=== PATIENT | male | born 1930 | race Two or more races ===

== ENCOUNTER 2022-01-28 04:26 | Inpatient (IN) | payer OTHER ==
--- OUTSIDE RECORDS SUMMARY | 2022-01-28 04:30 | XMS REPORT | Continuity of Care Document ---
:1930 Author Organization [facility] t Address [address] [place] [address] Care Team Providers Name Role Phone DANK BERNALJOSSY Attending Clinician Unavailable ADDI RAMOS Attending Clinician [phone] NURSE, NURSE Attending Clinician Unavailable PHUONG GREEN Attending Clinician [phone] TRELL RODRÍGUEZ Attending Clinician Unavailable [facility], PROVIDER Attending Clinician Unavailable JEANNA OWUSU Attending Clinician [phone] Problems This patient has no known problems. Allergies, Adverse Reactions, Alerts This patient has no known allergies or adverse reactions. Social History Social Habit Start Date Stop Date Quantity Comments Source Health-related Behavior 2019-06-06 00:00:[address] [facility] intake [facility] Sex Assigned At Male Acc [facility] Smoking Status Start Date Stop Date Source [facility] Medications Ordered Filled Start Stop Current Ordering Indication Dosage Frequency Signature Comments Components Source Medication Medication Date Date Medication? Clinician (SIG) Name Name Plavix 75 2018-06 No take 1 [facility] mg tablet 2-30 tablet (75 9 ealt h 00:00: mg) by Medicatio 00 oral route n once daily refilled during OV.--AG,R N Toprol XL 2018-06 No take 1 [facility] 50 mg 2-30 tablet (50 9 ealth tablet,exte 00:00: mg) by Medicatio nded 00 oral route n release once daily refilled during OV.--AG,R N aspirin 81 2019-1 No take 1 [facility] mg 2-30 tablet (81 9 ealth tablet,mekhi 00:00: mg) by Medicatio yed release 00 oral route n once daily refilled during OV.--AG,R N Crestor 20 2018-06 No take 1 [facility] mg tablet 2-30 tablet (20 9 ealt h 00:00: mg) by Medicatio 00 oral route n once daily refilled during OV.--AG,R N donepezil 5 2018-06 No take 1 [facility] mg tablet 2-30 tablet (5 9 ealth 00:00: mg) by Medicatio 00 oral route n once daily refilled in the during evening OV.--AG,R N levothyroxi 2018-06 No take 1 [facility] ne 50 mcg 2-30 tablet by 9 ealth tablet 00:00: Oral route Medicatio 00 1 time per n day refilled during OV.--AG,R N pyridostigm 2018-06 No take 1 [facility] ine bromide 2-30 tablet (60 9 ea lth 60 mg 00:00: mg) by Medicatio tablet 00 oral route n 4 times refilled per day during OV.--AGR N pyridostigm 2018-06- No take 1 [facility] ine bromide 2-16 -30 tablet (60 e alth 60 mg 00:00: 00:00 mg) by tablet 00 :00 oral route 4 times per day levothyroxi 2018- No take 1 [facility] ne 50 mcg 6-30 tablet by ealt h tablet 00:00: 00:00 Oral route 00 :00 1 time per day Plavix 75 2018- No take 1 [facility] mg tablet 09-14 tablet (75 eal th 00:00: 00:00 mg) by 00 :00 oral route once daily Toprol XL 2018- No take 1 [facility] 50 mg 09-14 tablet (50 ealth tablet,exte 00:00: 00:00 mg) by nded 00 :00 oral route release once daily aspirin 81 2018- No take 1 [facility] mg 09-14 tablet (81 ealth tablet,mekhi 00:00: 00:00 mg) by yed release 00 :00 oral route once daily Crestor 20 2018- No take 1 [facility] mg tablet 09-14 tablet (20 eal th 00:00: 00:00 mg) by 00 :00 oral route once daily donepezil 5 2018- No take 1 [facility] mg tablet 09-14 tablet (5 ealt h 00:00: 00:00 mg) by 00 :00 oral route once daily in the evening pyridostigm take 1 [facility] ine bromide 09-14 tablet (60 e alth 60 mg 00:00: 00:00 mg) by tablet 00 :00 oral route 4 times per day Immunizations Ordered Filled Date Status Comments Source Immunization Name Immunization Name Influenza 2017-07-09 Completed Note: FLU VACC 4 [facility] 4 SAMIR 3 YRS PLUS IM 00:00:00 By VIKAS ; Source: New Immunization Record Influenza 2016-04-09 Completed Note: FLU VACC 4 [facility] 8 SAMIR 3 YRS PLUS IM 00:00:00 By PRESLEY ; Source: New Immunization Record Vital Signs Vital Name Observation Time Observation Value Comments Source Body height 2019-06-06 15:28:00 162.56 cm [facility] Patient Body Weight 2019-06-06 15:28:00 69.853 kg [facility] Systolic 2019-06-06 15:28:00 146 mm[Hg] [facility] Diastolic 2019-06-06 15:28:00 58 mm[Hg] [facility] Heart Beat 2019-06-06 15:28:00 76 /min [facility] Body Temperature 2019-06-06 15:28:00 36.61 Sweetie [facility] Respiratory Rate 2019-06-06 15:28:00 20 /min [facility] Body mass index 2019-06-06 15:28:00 26.43 kg/m2 [facility]rav[facility] Systolic 2018-09-14 12:20:00 142 mm[Hg] [facility] Diastolic 2018-09-14 12:20:00 78 mm[Hg] [facility] Body height 2018-09-14 11:21:00 64.00 [in_us] [facility] Patient Body Weight 2018-09-14 11:21:00 150.00 [lb_av] [facility] Systolic 2018-09-14 11:21:00 143 mm[Hg] [facility] Diastolic 2018-09-14 11:21:00 69 mm[Hg] [facility] Heart Beat 2018-09-14 11:21:00 68 /min [facility] Body Temperature 2018-09-14 11:21:00 98.40 [degF] [facility] Respiratory Rate 2018-09-14 11:21:00 18 /min [facility] Body mass index 2018-09-14 11:21:[facility] 2017-12-21 14:53:00 64.00 [facility] 2017-12-21 14:53:00 145.00 [lb_av] [facility] Systolic 2017-12-21 14:53:00 116 mm[Hg] [facility] Diastolic 2017-12-21 14:53:00 51 mm[Hg] [facility] Heart Beat 2017-12-21 14:53:00 63 /min [facility] Body Temperature 2017-12-21 14:53:00 97.90 [degF] [facility] Respiratory Rate 2017-12-21 14:53:00 18 /min [facility] Body mass index 2017-12-21 14:53:00 24.90 kg/m2 [facility] Body height 2017-07-22 08:54:00 64.00 [in_us] [facility] Patient Body Weight 2017-07-22 08:54:00 148.00 [lb_av] [facility] Systolic 2017-07-22 08:54:00 132 mm[Hg] [facility] Diastolic 2017-07-22 08:54:00 77 mm[Hg] [facility] Heart Beat 2017-07-22 08:54:00 70 /min [facility] Body Temperature 2017-07-22 08:54:00 96.90 [degF] [facility] Respiratory Rate 2017-07-22 08:54:00 18 /min [facility] Body mass index 2017-07-22 08:54:00 25.40 kg/m2 [facility] Body height 2016-12-15 12:48:00 64.00 [in_us] [facility] Patient Body Weight 2016-12-15 12:48:00 143.20 [lb_av] [facility] Systolic 2016-12-15 12:48:00 135 mm[Hg] [facility] Diastolic 2016-12-15 12:48:00 60 mm[Hg] [facility] Heart Beat 2016-12-15 12:48:00 73 /min [facility] Body Temperature 2016-12-15 12:48:00 97.10 [degF] [facility] Respiratory Rate 2016-12-15 12:48:00 18 /min [facility] Body mass index 2016-12-15 12:48:00 24.60 kg/m2 [facility] Intravascular Systolic 2016-05-05 14:39:00 128 mm[Hg] [facility] Diastolic 2016-05-05 14:39:00 72 mm[Hg] [facility] Body height 2016-05-05 14:18:00 64.00 [in_us] [facility] 2016-05-05 14:18:00 148.20 [lb_av] [facility] Systolic 2016-05-05 14:18:00 149 mm[Hg] [facility] Diastolic 2016-05-05 14:18:00 63 mm[Hg] [facility] Heart Beat 2016-05-05 14:18:00 66 /min [facility] Body Temperature 2016-05-05 14:18:00 97.70 [degF] [facility] Respiratory Rate 2016-05-05 14:18:00 18 /min [facility] Body mass index 2016-05-05 14:18:00 25.40 kg/m2 [facility] Body height 2015-07-31 10:15:00 64.00 [in_us] [facility] Weight 2015-07-31 10:15:00 155.40 [lb_av] [facility] Systolic 2015-07-31 10:15:00 125 mm[Hg] [facility] Diastolic 2015-07-31 10:15:00 55 mm[Hg] [facility] Heart Beat 2015-07-31 10:15:00 63 /min [facility] Body Temperature 2015-07-31 10:15:00 97.10 [degF] [facility] Respiratory Rate 2015-07-31 10:15:00 18 /min [facility] Body mass index 2015-07-31 10:15:00 26.70 kg/m2 [facility] Procedures Procedure Date / Time Performed Performing Clinician [facility] e GLYCOSYLATED HEMOGLOBIN TEST 2019-06-06 00:00:00 [facility] ASSAY THYROID STIM HORMONE 2019-06-06 00:00:00 [facility] OFFICE/OUTPATIENT VISIT EST 2019-06-06 00:00:00 [facility] Encounters Start End Encounter Admission Attending Care Care Encounter Source Date/Time Date/Time Type Type Clinicians Facility Department ID 2019-06-15 2019-06-15 Outpatient E BERNAL, [id number] 10:55:00 22:17:00 NADA 2019-06-06 2019-06-06 OFFICE/OUT RICHARD[facility] [id number] Access 15:30:00 15:30:00 PATIENT ADDI e2-4la5-87m 9ba-477c- 9 ealth VISIT EST 0-ij6fdp218 [id number] 0f4 [id number] 2019-05-23 2019-05-23 Outpatient NURSE, [facility] [id number] Access 13:17:00 13:17:00 NURSE 45-0g7d-e6g lisa-4ce5-b ealt [id number] 2018-11-08 2018-11-08 Outpatient PETER, [facility] 6jl3x1w5-2a [id number] [facility] 00:00:00 00:00:00 FERNANDORI e2-5dy4-93k 188-4c91-a ealt 0-jk1apq316 4ee-d4o504 0f4 [id number] 9162-06-02 2018-11-07 Outpatient PETER[facility] 2uk8w1n7-8u b84 [id number] [facility] 00:00:00 00:00:00 FERNANDORI e2-7bs2-97s 93d-4c0e-9 ealt 0-nx0soh175 y09-8tm818 0f4 [id number] 2018-11-03 2018-11-03 Outpatient PETER[facility] 9vy0m6f3-0x cef 0l8z1-o [facility] 00:00:00 00:00:00 GAYTARI e2-3hp8-87s n06-4rwl-5 ealth 0-yj4ggp435 59c-i5u442 0f4 [id number] 2018-11-03 2018-11-03 Outpatient ANNE, [facility] 9lw8d5t5-8z 45e [id number] [facility] 00:00:00 00:00:00 MEHJABIN e2-6nm1-87k 9ca-44ce- 9 ealth 0-aq6mip363 46f-05b9d8 0f4 [id number] 2018-09-14 2018-09-14 Outpatient PETER[facility] 3gu5d7t6-6a aab [id number] [facility] 11:21:00 11:21:00 GAYTARI e2-4zy2-42e ddb-4fd7-b ealth 0-zr4aqm591 443-fh340h 0f4 [id number] 2018-09-14 2018-09-14 Outpatient [facility] [id number] [facility] 00:00:00 00:00:00 H, PROVIDER ea lth 2018-09-14 2018-09-14 Outpatient [facility] [id number] [id number] [facility] 00:00:00 00:00:00 H, PROVIDER e2-4jl5-00a ef1-47 a8-8 ealth 0-tt0jso449 50d-c9f22a 0f4 [id number] 2018-09-14 2018-09-14 Outpatient ANNE, [facility] 3al4v3a6-1y 51d hw80b-t [facility] 00:00:00 00:00:00 MEHJABIN e2-8xd0-30h 2fe-429e- 8 ealth 0-pe2dze100 006-887bda 0f4 ad3af9 2018-09-10 2018-09-10 Outpatient FRANCOISE, [facility] 9cu8b5x4-0p 7ec 4q9l6-s [facility] 00:00:00 00:00:00 JEANNA e2-8da5-25p bc2-41df-9 ealth 0-yg6qcb327 [id number]-eb3344 0f4 [id number] 0250-03-27 2018 Outpatient [facility] [id number] [facility] 00:00:00 00:00:00 H, PROVIDER yuri [facility] 2018 2018 Outpatient [facility] [id number] [id number] [facility] 00:00:00 00:00:00 H, PROVIDER e2-3uw3-82p 45a-43 5d-a ealt 0-ad4vlj850 d70-5q6114 0f4 [id number] 2017-12-21 2017-12-21 Outpatient PETER[facility] 7wt5o8j3-4l [id number] [id number] [facility] 14:53:00 14:53:00 GAYTARI e2-5vo2-64w bf1-45b2-8 ealth 0-ox7nax587 [id number] 0f4 [id number] 2017-12-21 2017-12-21 Outpatient [facility] [id number] Access 00:00:00 00:00:00 H, PROVIDER [facility] 2017-12-21 2017-12-21 Outpatient [facility] [id number] [id number] [facility] 00:00:00 00:00:00 H, PROVIDER e2-4bb3-61r 5aa-44 42-9 ealth 0-kk9uxz037 339-9ced3f 0f4 [id number] 2017-12-21 2017-12-21 Outpatient ANNE, [facility] 9ek6z2v7-7q [id number] [facility] 00:00:00 00:00:00 MEHJABIN e2-4sx4-50o fe2-4077- b ealth 0-sl5dkt164 [id number]-n08160 0f4 5c83ba 2017-12-15 2017-12-15 Outpatient PETER, HC 4sn7n7m4-3d f0f [id number] [facility] 00:00:00 00:00:00 GAYTARI e2-7id1-56g 867-4400-b ealth 0-ym1ham212 87e-42fc41 0f4 [id number] 2017-08-04 2017-08-04 Outpatient PETER[facility] 2ji3h4y4-4j [id number] [id number] [facility] 00:00:00 00:00:00 GAYTARI e2-2rm6-50d 043-4e4c-9 ealth 0-xs3bhw363 [id number]-p43992 0f4 f6a9c4 2017-08-03 2017-08-03 Outpatient PETER[facility] 8xf1r9t6-1f 00a [id number] [facility] 00:00:00 00:00:00 GAYTARI e2-5zr0-90d 91a-4403-9 ealt 0-zc6hwy588 39b-3n2034 0f4 91e23c 2017-07-31 2017-07-31 Outpatient [facility] [id number] Access 00:00:00 00:00:00 H, PROVIDER yuri ang 2017-07-31 2017-07-31 Outpatient [facility] 8nv0y2q9-9q [id number] Access 00:00:00 00:00:00 H, PROVIDER e2-7vb8-66d 956-47 6d-8 ealt 0-ge4ldq030 3df-4ccbc1 0f4 [id number] 3625-02-23 2017-07-31 Outpatient PETER[facility] 4sw0w7f5-5v [id number] [facility] 00:00:00 00:00:00 TONATARI e2-0im9-97j 101-4860-9 ealt 0-du7uac091 b71-08zu0c 0f4 uh019r 2017-07-31 2017-07-31 Outpatient ANNE, [facility] 6vg5j4o6-2v da9 [id number] [facility] 00:00:00 00:00:00 TRELL e2-2qo4-46d y42-8884- b ealth 0-ob1nfk149 731-17acb2 0f4 [id number] 2017-07-29 2017-07-29 Outpatient [facility] [id number] [facility] 00:00:00 00:00:00 H, PROVIDER [facility] 2017-07-29 2017-07-29 Outpatient [facility] 6vx3c3l2-9h [id number] [facility] 00:00:00 00:00:00 H, PROVIDER e2-8rc3-20s 8e1-4a ef-8 ealth 0-tj3asw478 bf5-422d3c 0f4 [id number] 2017-07-28 2017-07-28 Outpatient PETER[facility] 3kx4z5a4-8i 4ef [id number] [facility] 00:00:00 00:00:00 GAYTARI e2-4ns1-95f 1ed-4db7-b ealth 0-hr3txl645 99b-24j581 0f4 [id number] 2017-07-25 2017-07-25 Outpatient [facility] [id number] [facility] 00:00:00 00:00:00 H, PROVIDER [facility] 2017-07-25 2017-07-25 Outpatient PARKAR, HC 6do4j4d0-5l [id number] [id number] [facility] 00:00:00 00:00:00 MEHJABIN e2-6mh0-23z 2q8-1y0c- 9 ealth 0-nd6cfn730 [id number] 0f4 [id number] 3865-02-17 2017-07-25 Outpatient PET[facility] 7jf6f6i5-5g bda [id number] [facility] 00:00:00 00:00:00 GAYTARI e2-4es0-48a f94-1606-m ealth 0-zk8nur407 dc2-c3a44b 0f4 [id number] 2017-07-25 2017-07-25 Outpatient [facility] 4xf9s1e9-0g [id number] [facility] 00:00:00 00:00:00 H, PROVIDER e2-4wk7-40n a4d-4a 8f-a ealth 0-cu5pww349 59c-7k984c 0f4 [id number] 2017-07-22 2017-07-22 Outpatient PETER[facility] 6bo3v6v4-3c efb [id number] [facility] 10:13:00 10:13:00 GAYTARI e2-2sr9-21h 8fd-4492-9 ealth 0-xl4xpj636 7ad-6b94d5 0f4 cabbe1 2017-07-22 2017-07-22 Outpatient [facility] [id number] [facility] 00:00:00 00:00:00 H, PROVIDER [facility] 2017-07-22 2017-07-22 Outpatient [facility] [id number] [id number] [facility] 00:00:00 00:00:00 H, PROVIDER e2-4sa1-22j ac7-43 3f-a ealth 0-rt6bms138 bcf-txb371 0f4 10d4f1 2017-07-22 2017-07-22 Outpatient ANNE, [facility] 7qy4f8f4-1o 84e ccec8-f [facility] 00:00:00 00:00:00 TRELL e2-8tf6-69j fa2-43bb- b ealt 0-et5zjr384 12e-2362bf 0f4 ae6b44 2017-02-07 2017-02-07 Outpatient [facility] [id number] [facility] 00:00:00 00:00:00 H, PROVIDER [facility] 2017-02-07 2017-02-07 Outpatient [facility] 0rj9q8w3-3k [id number] [facility] 00:00:00 00:00:00 H, PROVIDER e2-7yg3-12v ddf-4a a1-8 ealth 0-gb8ibj437 72d-so6339 0f4 1c010x 2016-12-15 2016-12-15 Outpatient PETER[facility] 5ql6d2w7-0b b54 2t27y-g [facility] 12:48:00 12:48:00 GAYTARI e2-2nj3-40g baf-4dc8-a ealth 0-ba3aoh692 e96-7r3ky6 0f4 2a70cf 2016-12-15 2016-12-15 Outpatient [facility] [id number] [facility] 00:00:00 00:00:00 H, PROVIDER yuri navarro 2016-12-15 2016-12-15 Outpatient [facility] [id number] [id number] [facility] 00:00:00 00:00:00 H, PROVIDER e2-6yd1-89i 621-47 6d-a ealt 0-op2mea431 37f-e26fb7 0f4 g9p775 2016-12-15 2016-12-15 Outpatient PARKAR[facility] 5cz3q0o5-8e [id number] [id number] [facility] 00:00:00 00:00:00 MEHJAFAISAL e2-4sl4-40i bf0-47b7- b ealt 0-uu6irg551 29f-78e796 0f4 [id number] 2016-11-07 2016-11-07 Outpatient [facility] [id number] Access 00:00:00 00:00:00 H, PROVIDER [facility] 2016-11-07 2016-11-07 Outpatient [facility] 3cd3p9k0-4j [id number] Access 00:00:00 00:00:00 H, PROVIDER shashi-9ld2-17h 98c-49 75[facility] 0-tb4oxa334 934-d7ecbb 0f4 fqp687 2016-09-12 2016-09-12 Outpatient [facility] [id number] Access 00:00:00 00:00:00 H, PROVIDER yuri navarro 2016-09-12 2016-09-12 Outpatient [facility] 4qi9z8j1-6w [id number] Access 00:00:00 00:00:00 H, PROVIDER shashi-2kc0-19p 573-47 40-b ealt 0-jf9txd876 ac2-f13dee 0f4 [id number] 2016-07-24 2016-07-24 Outpatient [facility] [id number] Access 00:00:00 00:00:00 H, PROVIDER yuri navarro 2016-07-24 2016-07-24 Outpatient [facility] [id number] [facility] 00:00:00 00:00:00 H, PROVIDER e2-1pf9-43r b3b-40 64-b ealth 0-bp5sai442 3fb-581b64 0f4 1e7c2b 2016-05-06 2016-05-06 Outpatient ANNE[facility] 6ct5g4x7-2t b66 [id number] [facility] 00:00:00 00:00:00 MEDUNCAN e2-5cw5-60y u5d-3449- 8 ealth 0-go1ckx786 b40-173tt7 0f4 [id number] 2016-05-05 2016-05-05 Outpatient ANNE[facility] 5oc9e6f5-9b 60a [id number] [facility] 14:45:00 14:45:00 TRELL e2-4va2-84x a7s-8459- b ealth 0-pe0xtf752 fac-61n395 0f4 a3baaa 2016-05-05 2016-05-05 Outpatient [facility] [id number] Access 00:00:00 00:00:00 H, PROVIDER yuri ang 2016-05-05 2016-05-05 Outpatient [facility] 5ot9f4w6-0x [id number] [facility] 00:00:00 00:00:00 H, PROVIDER shashi-0qf0-75g f02-45 a7-a ealt 0-oi4kuu672 [id number]-[id number] 0f4 [id number] 9696-08-02 2016-01-08 Outpatient [facility] [id number] Access 00:00:00 00:00:00 H, PROVIDER yuri ang 2016-01-08 2016-01-08 Outpatient [facility] 0ff3y0z1-0d [id number] [facility] 00:00:00 00:00:00 H, PROVIDER shashi-0cn8-98b 580-4f 2c-b ealt 0-qg4xqz468 0i5-x0x41u 0f4 [id number] 2015-09-03 2015-09-03 Outpatient [facility] [id number] [facility] 00:00:00 00:00:00 H, PROVIDER yuri navarro 2015-09-03 2015-09-03 Outpatient [facility] 1jr2j9k5-9c [id number] [facility] 00:00:00 00:00:00 H, PROVIDER e2-2ck5-97b 6e8-45 d3-8 ealth 0-nz0jdy405 706-edefe6 0f4 [id number] 2015-08-10 2015-08-10 Outpatient [facility] [id number] [facility] 00:00:00 00:00:00 H, PROVIDER y[facility] 2015-08-10 2015-08-10 Outpatient [facility] 1km5k2d9-2g [id number]-[id number] [facility] 00:00:00 00:00:00 H, PROVIDER e2-7eo1-40e 1e4-43 f5-9 ealth 0-xm6hjg263 5b9-9c1g95 0f4 [id number] 2015-08-09 2015-08-09 Outpatient AN[facility] 3dz3d7p4-5s 003 ic60z-8 [facility] 00:00:00 00:00:00 MEHJABIN e2-8wt1-28x 2p2-4d03- 9 ealth 0-wm2hjy604 24d-179bb1 0f4 [id number] 2015-08-08 2015-08-08 Outpatient [facility] [id number] [facility] 00:00:00 00:00:00 H, PROVIDER y[facility] 2015-08-08 2015-08-08 Outpatient [facility] 8ke1k0a4-9h 2t6r5x5x-q [facility] 00:00:00 00:00:00 H, PROVIDER e2-0no7-43h 6a0-48 fc-9 ealth 0-ub8ijk350 62a-1f1001 0f4 [id number] 2015-08-08 2015-08-08 Outpatient [facility] 2th9n0t2-1u 4a0 [id number] [facility] 00:00:00 00:00:00 MEHJABIN e2-1ef7-40d g57-818b- 8 ealth 0-zt7qnb325 ddf-2w8776 0f4 [id number] 2015-08-02 2015-08-02 Outpatient AN[facility] 4tw0f6a0-0n ca4 [id number] [facility] 00:00:00 00:00:00 MEHJABIN e2-4qe9-48o 329-4cf1- a ealt 0-az9dwg257 h1p-1w99pl 0f4 [id number] 6868-02-23 2015-07-31 Outpatient AN[facility] 2ym6x6s1-8r 5a1 [id number] [facility] 10:15:00 10:15:00 MEHJABIN e2-8lz6-44a x39-3rzb- 8 ealt 0-gp4bgt135 [id number] 0f4 [id number] 2015-07-31 2015-07-31 Outpatient [facility] [id number] Access 00:00:00 00:00:00 H, PROVIDER y[facility] 2015-07-31 2015-07-31 Outpatient [facility] 5xh3s3s8-3q [id number] Access 00:00:00 00:00:00 H, PROVIDER e2-8gh6-71l 698-4b f2-b [facility] [id number] [id number] 9925-07-22 2014-12-27 Outpatient [facility] [id number] Access 00:00:00 00:00:00 H, PROVIDER yuri [facility] 2014-12-27 2014-12-27 Out[facility] [id number] Access 00:00:00 00:00:00 H, PROVIDER e2-4gg9-72m ca1-4f 2a-a ealt [id number] 0f4 [id number] 2014-08-21 2014-08-21 Outpatient [facility] [id number] Access 00:00:00 00:00:00 H, PROVIDER yuri navarro 2014-08-21 2014-08-21 Outpatient [facility] [id number] Access[facility] 00:00:00 00:00:00 H, PROVIDER e2-1fi5-69j 32d-48 26-a [facility] [id number] [id number] 2014-06-30 2014-06-30 Outpatient [facility] [id number] Access 00:00:00 00:00:00 H, PROVIDER ea lt 2014-06-30 2014-06-30 [facility] [id number] Access 00:00:00 00:00:00 H, PROVIDER e2-5mn2-93n 922-4b 9c-8 [facility] [id number] [facility]-bb52b3 0f4 [id number] Results Test Description Test Time Test Comments Results Result Comments Source Panel Description: Hemoglobin A1c/Hemoglobin.total in Blood 2019-06-07 09:03:00 Test Item Value Reference Range Interpretation Comme nts Hemoglobin A1c (test code = 6.1 % 4.8-5.6 H . Prediabetes: 5.7 - 6.4 Diabetes: >6.4 4548-4) Glycemic contro l for adults with diabetes: <7.0< br/>
Performed by:
[facility] ()

[facility] Description: Thyrotropin [Units/volume] in Serum or Plasma by Detection limit <= 0.05 mIU/V1726-92-38 06:43:00 Test Item Value Reference Range Interpretation Comments TSH (test code = 43244-8) 4.000 uIU/mL 0.450-4.[address]
--- NOTE | 2022-01-28 05:23 | ER ---
Nurse's Notes [facility] Name: Phillip Liz Age: 89 yrs Sex: Male : 1930 Arrival Date: 01/28/2022 Time: 04:30 Bed 4 Private MD: Diagnosis: Lobar pneumonia, unspecified organism-left lower lobe;Hypoxemia;Dementia in other diseases classified elsewhere without behavioral disturbance;Altered mental status, unspecified;Dyspnea;Hypothermia, not associated with low environmental temperature;Sepsis, unspecified organism;Acute kidney failure, unspecified Presentation: 01/28 04:50 Acuity: ELYSE 2 lp1 04:51 Chief complaint: Patient's son or daughter states: Reports patient with wheezing, lp1 shortness of breath since last night; low O2 levels at home and low BP. Coronavirus screen: shortness of breath. Ebola Screen: No symptoms or risks identified at this time. Initial Sepsis Screen: Does the patient meet any 2 criteria? RR > 20 per min. Altered Mental Status. HR > 90 bpm. Does the patient have a suspected source of infection? Yes: Productive cough/pneumonia. Risk Assessment: Do you want to hurt yourself or someone else? Patient reports no desire to harm self or others. Onset of symptoms was January 28, 2022. 04:51 Method Of Arrival: Wheelchair lp1 Triage Assessment: 07:01 General: Appears distressed, uncomfortable, ill, Behavior is anxious, restless. vc1 Respiratory: the patient has moderate shortness of breath. Respiratory: Reports cough that is Onset: The symptoms/episode began/occurred gradually. Derm: Skin temperature is cold. Historical: - Allergies: 04:53 No Known Allergies; lp1 - Home Meds: 04:53 aspirin 81 mg Oral TbEC 1 tab once daily [Active]; clopidogrel 75 mg oral tab 1 tab lp1 once daily [Active]; donepezil 10 mg oral tab 1 tab once daily [Active]; levothyroxine 50 mcg tab 1 tab once daily [Active]; Claritin 10 mg Oral tab 1 tab once daily [Active]; pyridostigmine bromide 60 mg oral tab [Active]; Seroquel 25 mg Oral tab [Active]; rosuvastatin 20 mg oral tab 1 tab once daily [Active]; - PMHx: 04:53 Myocardial infarction; Hyperlipidemia; Dementia; lp1 - PSHx: 04:53 Heart stents; Cardiac bypass; lp1 - Immunization history:: Adult Immunizations up to date. - Social history:: Smoking status: Patient denies any tobacco usage or history of. Screenin:07 Nutritional screening: No deficits noted. Tuberculosis screening: No symptoms or risk tw5 factors identified. Fall Risk Mental Status-. Sepsis Screening: . Infection: SIRS - Systemic Inflammatory Response Syndrome: 2 or more indicates positive screen: [heart rate greater than 90 beats per minute] [respiratory rate is greater than 20 breaths per minute]. 07:00 Abuse screen: Denies threats or abuse. vc1 Assessment: 05:07 General: Appears distressed, uncomfortable, Behavior is anxious, uncooperative. Neuro: tw5 Level of Consciousness is awake, alert, confused, lethargic. Cardiovascular: Rhythm is irregular. Respiratory: Airway is patent Respiratory effort is labored, Respiratory pattern is tachypnea Breath sounds with crackles bilaterally. 07:00 Reassessment: No changes from previously documented assessment. Pain: Unable to use vc1 pain scale. Patient is disoriented. Does not appear to understand pain scale. 07:55 Reassessment: Patient appears in no apparent distress at this time. No changes from ph previously documented assessment. Patient and/or family updated on plan of care and expected duration. Pain level reassessed. Pt drowsy but awakens easily to verbal stimuli, BP decreased to 80s/50s, fluid bolus administered. Vital Signs: 04:51 BP 157 / 97; Pulse 106; Resp 26; Temp 96.8(A); Pulse Ox 86% on R/A; Weight 56.7 kg (R); lp1 05:36 Pulse 100; Resp 24; Pulse Ox 100% on 2 lpm NC; tw5 06:30 BP 194 / 78 (man/); vc1 07:50 BP 120 / 85; Pulse 106; Resp 18; Temp 100.4(C); ph 07:56 BP 85 / 54; Pulse 104; Resp 20; Temp 100.7; Pulse Ox 100% on 2 lpm NC; ph 09:00 BP 107 / 80; Pulse 102; Resp 21; Temp 99.9(C); Pulse Ox 97% on R/A; ph 10:00 BP 117 / 90; Pulse 93; Resp 20; Temp 99.6(C); Pulse Ox 99% on R/A; ph ED Course: 04:30 Patient arrived in ED. ja2 04:34 Pepe Kapadia MD is Attending Physician. candace 04:50 Triage completed. lp1 04:52 Arm band placed on. lp1 05:06 Niharika Ramirez is Primary Nurse. tw5 05:07 Bed in low position. Call light in reach. Side rails up X 1. Side rails up X2. Adult w/ tw5 patient. 05:07 No provider procedures requiring assistance completed. Inserted saline lock: 20 gauge tw5 in right antecubital area, using aseptic technique. Blood collected. 05:08 XRAY Chest (1 view) In Process Unspecified. EDMS 05:10 Flu Sent. tw5 05:10 SARS RAPID Sent. tw5 05:10 Procalcitonin Sent. tw5 05:10 Lactate Sent. tw5 05:11 Blood Culture Adult (2) Sent. tw5 05:21 Katarina Liz MD is Hospitalizing Provider. [facility] 06:45 Notified ED physician of a critical lab result(s). lac 3.6 troponin 378.3. tw5 07:00 Temperature cath inserted. vc1 07:57 Primary Nurse role handed off by Niharika Ramirez ph 07:57 Kenyatta Dykes, RN is Primary Nurse. ph Administered Medications: 05:17 Drug: Rocephin (cefTRIAXone) 2 grams Route: IV; Rate: per protocol; Site: right [facility] antecubital; 05:18 Drug: NS 0.9% 500 ml Route: IV; Rate: bolus; Site: right antecubital; [facility] 05:18 Drug: NS 0.9% 1000 ml Route: IV; Rate: 125 ml/hr; Site: right antecubital; [facility] 05:18 Drug: Zithromax (azithromycin) 500 mg Route: IVPB; Infused Over: 1 hrs; Site: right ja4 antecubital; 05:18 Drug: Pepcid (famotidine) 20 mg Route: IVP; Site: right antecubital; [facility] 07:45 Drug: NS 0.9% 1000 ml Route: IV; Rate: 1 bolus; Site: right antecubital; 09:00 Follow up: Response: No adverse reaction; IV Status: Completed infusion; IV Intake: ph 1000ml 08:19 Drug: vancoMYCIN 1 grams Route: IVPB; Infused Over: 2 hrs; Site: right antecubital; ph 10:20 Follow up: Response: No adverse reaction; IV Status: Completed infusion; IV Intake: ph 250ml Medication: 05:07 VIS not applicable for this client. tw5 Intake: 09:00 IV: 1000ml; Total: 1000ml. ph 10:20 IV: 250ml; Total: 1250ml. ph Outcome: 05:22 Decision to Hospitalize by Provider. [facility] 13:30 Patient left the ED. ss Signatures: Dispatcher [employer] EDMS Pepe Kapadia MD MD cha Smirch, Shelby, RN RN ss Rani Ingram RN RN lp1 Kenyatta Dykes RN RN Lindsay Ramos Tiffany 5 Anna Castellanos RN RN vc1 Tl Engel RN RN ja4 Corrections: (The following items were deleted from the chart) 05:01 04:51 BP 157 / 97; Pulse 106bpm; Resp 26bpm; Pulse Ox 86% RA; 56.7 kg Reported; lp1 lp1
--- NOTE | 2022-01-28 05:23 | EDPHYS ---
Physician Documentation [facility] Name: Phillip Liz Age: 89 yrs Sex: Male : 1930 Arrival Date: 01/28/2022 Time: 04:30 Bed 4 Private MD: ED Physician Pepe Kapadia HPI: 01/28 05:11 This 89 yrs old Other Male presents to ER via Wheelchair with complaints of Shortness candace Of Breath, Low Blood Pressure. 05:11 The patient has shortness of breath at rest, with light activity. Onset: The candace symptoms/episode began/occurred 2 day(s) ago. Duration: The symptoms are continuous, and are steadily getting worse. The patient's shortness of breath is aggravated by coughing, light activity, supine position. Associated signs and symptoms: Pertinent positives:. Severity of symptoms: At their worst the symptoms were mild in the emergency department the symptoms are unchanged. The patient has experienced similar episodes in the past, a few times. Historical: - Allergies: 04:53 No Known Allergies; lp1 - Home Meds: 04:53 aspirin 81 mg Oral TbEC 1 tab once daily [Active]; clopidogrel 75 mg oral tab 1 tab lp1 once daily [Active]; donepezil 10 mg oral tab 1 tab once daily [Active]; levothyroxine 50 mcg tab 1 tab once daily [Active]; Claritin 10 mg Oral tab 1 tab once daily [Active]; pyridostigmine bromide 60 mg oral tab [Active]; Seroquel 25 mg Oral tab [Active]; rosuvastatin 20 mg oral tab 1 tab once daily [Active]; - PMHx: 04:53 Myocardial infarction; Hyperlipidemia; Dementia; lp1 - PSHx: 04:53 Heart stents; Cardiac bypass; lp1 - Immunization history:: Adult Immunizations up to date. - Social history:: Smoking status: Patient denies any tobacco usage or history of. ROS: 05:12 Eyes: Negative for injury, pain, redness, and discharge, ENT: Negative for injury, candace pain, and discharge, Neck: Negative for injury, pain, and swelling, Cardiovascular: Negative for chest pain, palpitations, and edema, Abdomen/GI: Negative for abdominal pain, nausea, vomiting, diarrhea, and constipation, Back: Negative for injury and pain, : Negative for injury, bleeding, discharge, and swelling, MS/Extremity: Negative for injury and deformity, Neuro: Negative for headache, weakness, numbness, tingling, and seizure, Psych: Negative for depression, anxiety, suicide ideation, homicidal ideation, and hallucinations, Allergy/Immunology: Negative for hives, rash, and allergies, Endocrine: Negative for neck swelling, polydipsia, polyuria, polyphagia, and marked weight changes, Hematologic/Lymphatic: Negative for swollen nodes, abnormal bleeding, and unusual bruising. 05:12 Constitutional: Positive for chills, fatigue, fever, malaise, poor PO intake. 05:12 Respiratory: Positive for cough, with no reported sputum. 05:12 Skin: Positive for pallor. Exam: 05:15 Eyes: Pupils equal round and reactive to light, extra-ocular motions intact. Lids and candace lashes normal. Conjunctiva and sclera are non-icteric and not injected. Cornea within normal limits. Periorbital areas with no swelling, redness, or edema. 05:15 Constitutional: The patient appears lethargic, in obvious distress, mildly distressed, moderately distressed. 05:15 Cardiovascular: Rate: tachycardic, Rhythm: regular, Pulses: Pulses are 4+ in bilateral radial, brachial, femoral, popliteal, posterior tibial and and dorsalis pedis arteries.. Heart sounds: normal, normal S1and S2, no S3 or S4, murmur, systolic, grade 2 over 6, Edema: is not appreciated, JVD: is not appreciated. 07:06 ECG was reviewed by the Attending Physician. [facility] Vital Signs: 04:51 BP 157 / 97; Pulse 106; Resp 26; Temp 96.8(A); Pulse Ox 86% on R/A; Weight 56.7 kg (R); lp1 05:36 Pulse 100; Resp 24; Pulse Ox 100% on 2 lpm NC; tw5 06:30 BP 194 / 78 (man/); vc1 07:50 BP 120 / 85; Pulse 106; Resp 18; Temp 100.4(C); ph 07:56 BP 85 / 54; Pulse 104; Resp 20; Temp 100.7; Pulse Ox 100% on 2 lpm NC; ph 09:00 BP 107 / 80; Pulse 102; Resp 21; Temp 99.9(C); Pulse Ox 97% on R/A; ph 10:00 BP 117 / 90; Pulse 93; Resp 20; Temp 99.6(C); Pulse Ox 99% on R/A; ph MDM: 04:39 Patient medically screened. candace 05:16 Differential diagnosis: Anemia CHF exacerbation, obstructed airway, bronchitis, flu, candace pneumonia, Pneumothorax reactive airway disease, Sepsis Unstable Angina. Antibiotic administration: Rocephin and Zithromax given. Differential Diagnosis altered mental status, sepsis, flu. Differential Diagnosis: electrolyte abnormality, hypoglycemia, pneumonia, seizure, sepsis, UTI, volume depletion. The patient's Wells Deep Vein Thrombosis Score was calculated as follows: Heart Rate >100 BPM (1.5 Pts) Imm/Surg in last 4 wks (1.5 Pts) Total Score: 3-6 Pts - Mod Risk. The patient's pulmonary embolism risk score was calculated as follows: the patients heart rate is greater than 100 beats per minute (1.5 Pts) patient has experienced immobilization or surgery in the last four weeks (1.5 Pts) Total Score: 3-6 points. This patient was found to be at moderate risk for a pulmonary embolism by using the Well's assessment criteria. Immunization status: Pneumococcal vaccine: Influenza vaccine: Data reviewed: vital signs, nurses notes, diagnostic data from outside facility, old medical records, lab test result(s), EKG, radiologic studies, plain films. Data interpreted: pvc monitor: rate is 106 beats/min, rhythm is regular, Pulse oximetry: on room air is 86 %. Test interpretation: by ED physician or midlevel provider: ECG, plain radiologic studies. Counseling: I had a detailed discussion with the patient and/or guardian regarding: the historical points, exam findings, and any diagnostic results supporting the discharge/admit diagnosis, lab results, radiology results, the need for further work-up and treatment in the hospital. 01/28 04:38 Order name: Basic Metabolic Panel; Complete Time: 07:10 01/28 04:38 Order name: CBC with Diff; Complete Time: 06:40 candace 01/28 04:38 Order name: LFT's; Complete Time: 07:10 01/28 04:38 Order name: Magnesium; Complete Time: 07:10 01/28 04:38 Order name: NT PRO-BNP; Complete Time: 07:10 01/28 04:38 Order name: PT-INR; Complete Time: 06:40 [facility] 01/28 04:38 Order name: Troponin HS; Complete Time: 07:10 [facility] 01/28 04:38 Order name: Blood Culture Adult (2) [facility] 01/28 04:38 Order name: Lactate; Complete Time: 07:10 [facility] 01/28 04:38 Order name: Procalcitonin; Complete Time: 07:10 [facility] 01/28 04:38 Order name: Urine Culture [facility] 01/28 04:38 Order name: SARS RAPID; Complete Time: 06:40 [facility] 01/28 04:38 Order name: Flu; Complete Time: 06:40 [facility] 01/28 07:03 Order name: Urine Dipstick-Ancillary; Complete Time: 07:10 [facility] 01/28 04:38 Order name: XRAY Chest (1 view) [facility] 01/28 04:38 Order name: EKG; Complete Time: 04:39 [facility] 01/28 04:38 Order name: Cardiac monitoring; Complete Time: 05:02 [facility] 01/28 04:38 Order name: EKG - Nurse/Tech; Complete Time: 05:11 [facility] 01/28 04:38 Order name: IV Saline Lock; Complete Time: 05:11 [facility] 01/28 04:38 Order name: Labs collected and sent; Complete Time: 05:11 [facility] 01/28 04:38 Order name: O2 Per Protocol; Complete Time: 05:02 [facility] 01/28 09:50 Order name: Lactate Sepsis 2 HR Follow-up [facility] 01/28 10:26 Order name: Thyroid Stimulating Hormone [facility] 01/28 04:38 Order name: O2 Sat Monitoring; Complete Time: 05:02 [facility] 01/28 04:38 Order name: Urine Dipstick-Ancillary (obtain specimen); Complete Time: 07:49 [facility] 01/28 05:19 Order name: IV Saline Lock - Large Bore; Complete Time: 07:45 [facility] 01/28 06:39 Order name: Anderson; Complete Time: 07:44 [facility] EC:06 Rate is 106 beats/min. Rhythm is regular. QRS [place] is Normal. CO interval is normal. [facility] QRS interval is normal. QT interval is normal. T waves are Normal. No ST changes noted. Clinical impression: Sinus tachycardia and No evidence of ischemia. Interpreted by me. Reviewed by me. Administered Medications: 05:17 Drug: Rocephin (cefTRIAXone) 2 grams Route: IV; Rate: per protocol; Site: right [facility] antecubital; 05:18 Drug: NS 0.9% 500 ml Route: IV; Rate: bolus; Site: right antecubital; [facility] 05:18 Drug: NS 0.9% 1000 ml Route: IV; Rate: 125 ml/hr; Site: right antecubital; [facility] 05:18 Drug: Zithromax (azithromycin) 500 mg Route: IVPB; Infused Over: 1 hrs; Site: right 4 antecubital; 05:18 Drug: Pepcid (famotidine) 20 mg Route: IVP; Site: right antecubital; [facility] 07:45 Drug: NS 0.9% 1000 ml Route: IV; Rate: 1 bolus; Site: right antecubital; ph 09:00 Follow up: Response: No adverse reaction; IV Status: Completed infusion; IV Intake: ph 1000ml 08:19 Drug: vancoMYCIN 1 grams Route: IVPB; Infused Over: 2 hrs; Site: right antecubital; ph 10:20 Follow up: Response: No adverse reaction; IV Status: Completed infusion; IV Intake: ph 250ml Disposition: 07:08 Critical Care:. candace Disposition Summary: 01/28/22 05:22 Hospitalization Ordered Hospitalization Status: Inpatient Admission candace Provider: Katarina Liz cha Condition: Fair candace Problem: new candace Symptoms: have improved candace Bed/Room Type: Standard candace Location: Intensive Care Unit(01/28/22 12:12) bd Room Assignment: 2-(01/28/22 12:12) bd Diagnosis - Lobar pneumonia, unspecified organism - left lower lobe candace - Hypoxemia candace - Dementia in other diseases classified elsewhere without behavioral disturbance candace - Altered mental status, unspecified candace - Dyspnea candace - Hypothermia, not associated with low environmental temperature candace - Sepsis, unspecified organism candace - Acute kidney failure, unspecified candace Forms: - Medication Reconciliation Form candace - SBAR form candace Critical care time excluding procedures: 07:08 Critical care time: Bedside Care: 20 minutes, Consultation: 10 minutes, Family candace Intervention: 10 minutes. Total time: 40 minutes Signatures: Dispatcher [employer] Anahy Lester Corey, MD MD cha Smirch, Shelby, RN RN Rani Ingram RN RN lp Kenyatta Dykes RN RN ph Tl Engel RN RN ja4 Corrections: (The following items were deleted from the chart) 06:39 05:20 Misc. Order ordered. [facility] 05:22 Telemetry/MedSurg (Inpatient) [facility] 05:22 [facility] 12:12 11:52 [facility] ER HOLD ss bd 12: 11:52 ERHOLD- ss bd
[2022-01-28] MEDS ORDERED: FAMOTIDINE 20 MG/2 ML VIAL IV ONE (05:25)
[2022-01-28] MEDS ORDERED: NA CHLORIDE 0.9% 250 ML ONE ×3 (05:25→09:59)
[2022-01-28] MEDS ORDERED: AZITHROMYCIN 500 MG INJ IVPB ONE ×2 (05:25→09:59)
[2022-01-28] MEDS ORDERED: NA CHLORIDE 0.9% 500 ML ONE (05:25)
[2022-01-28] MEDS ORDERED: NA CHLORIDE 0.9% 1,000 ML ONE ×2 (05:25→07:49)
[2022-01-28] MEDS ORDERED: CEFTRIAXONE 2000 MG/VIAL ONE (05:25)
[2022-01-28 05:27] LABS: SARS-CoV-2 Antigen Rapid Res Negative (Negative)
[2022-01-28 06:18] LABS: Absolute Lymphocytes (CBC) 0.5 K/uL (0.7-4.9); Hematocrit 39.6 % (39.6-49.0); Lymphocytes % 5.2 % (15.3-44.8); MCV 91.1 fL (80-100); RBC Red Blood Cell Count 4.34 M/uL (4.33-5.43)
[2022-01-28 06:21] LABS: Protime INR 1.04
[2022-01-28 06:39] LABS: ALT/SGPT 15 U/L (12-78); AST/SGOT 19 U/L (15-37); Albumin 3.1 g/dL (3.4-5.0); Alkaline Phosphatase 47 U/L (45-117); BUN Blood Urea Nitrogen 24 mg/dL (7-18); Bicarbonate 22 mmol/L (21-32); Bilirubin Total 0.3 mg/dL (0.2-1.0); Glomerular Filtration Rate 32 ml/min (=/>90); Glucose Level 161 mg/dL (74-106); Magnesium 1.8 mg/dL (1.8-2.4); NT PRO-BNP 344 pg/mL (<450); Potassium 4.2 mmol/L (3.5-5.1); Protein, Total 7.5 g/dL (6.4-8.2); Sodium Level 138 mmol/L (136-145)
[2022-01-28 06:46] LABS: Bilirubin Direct < 0.1 mg/dL (0-0.2); Troponin High Sensitivity 378.3 pg/mL (<58.9)
[2022-01-28 07:03] LABS: Urine Blood 1+ (Negative); Urine Glucose Negative (Negative); Urine Protein Negative (Negative); Urine pH 5.5 (5.0-7.0)
[2022-01-28] MEDS ORDERED: VANCOMYCIN 1 GM/VIAL ONE (08:02)
[2022-01-28] MEDS ORDERED: IPRATROPIUM BROM 0.5MG/2.5ML ONE (08:56)
[2022-01-28] MEDS ORDERED: LEVALBUTEROL 1.25 MG/3 ML NEB ONE (08:56)
[2022-01-28] MEDS ORDERED: ONDANSETRON 4 MG/2 ML VIAL IV PRN (09:29)
[2022-01-28] MEDS ORDERED: AZITHROMYCIN IV 500 MG in NA CHLORIDE 0.9% 250 ML IVPB SCH (09:29)
[2022-01-28] MEDS: ENOXAPARIN 40 MG/0.4 ML SQ SCH (09:29)
[2022-01-28] MEDS ORDERED: IPRATROPIUM BROM 0.5MG/2.5ML NEB PRN ×2 (09:29→15:00)
[2022-01-28] MEDS ORDERED: ACETAMINOPHEN 325 MG TABLET PO PRN (09:29)
[2022-01-28] MEDS: ASPIRIN EC 81 MG TAB PO SCH (09:29)
[2022-01-28] MEDS ORDERED: ALBUTEROL 2.5 MG/3 ML NEB SOL NEB PRN ×2 (09:29→15:00)
[2022-01-28] MEDS: DONEPEZIL HCL 5 MG TAB PO SCH ×2 (09:29→20:29)
[2022-01-28] MEDS: PYRIDOSTIGMINE 60 MG TABLET PO SCH ×2 (09:29→20:29)
[2022-01-28] MEDS: NA CHLORIDE 0.9% 1,000 ML IV SCH ×2 (09:29→13:35)
[2022-01-28] MEDS: LEVOTHYROXINE SOD 0.05 MG TABLET PO SCH (09:45)
[2022-01-28] MEDS ORDERED: ASPIRIN EC 81 MG TAB PO ONE (09:59)
[2022-01-28] MEDS ORDERED: CEFTRIAXONE 1000 MG/VIAL ONE (09:59)
[2022-01-28] MEDS ORDERED: ENOXAPARIN 40 MG/0.4 ML SQ ONE (10:00)
[2022-01-28] MEDS ORDERED: NA CHLORIDE 0.9% 100 ML ONE (10:00)
--- NOTE | 2022-01-28 14:54 | RAD REPORT ---
EXAM DESCRIPTION: RAD - Chest Single View - 01/28/2022 5:06 am CLINICAL HISTORY: The patient is 89 years old and is Male; Cough TECHNIQUE: Single view of the chest. COMPARISON: No relevant prior studies available. FINDINGS: Lungs: Left basilar infiltrate suspicious for pneumonia. No pulmonary vascular congestion. Right lung is clear. Pleural space: Unremarkable. No pneumothorax. Heart: Small heart size. Status post CABG surgery. Mediastinum: Unremarkable. Bones/joints: Sternal closure wires. Upper abdomen: No free air in the visualized upper abdomen. IMPRESSION: Left basilar infiltrate suspicious for pneumonia. Electronically signed by: Helen Rosario MD 01/28/2022 5:21 AM CDT Due to temporary technical issues with the PACS/Fluency reporting system, reports are being signed by the in house radiologists without review as a courtesy to insure prompt reporting. The interpreting radiologist is fully responsible for the content of the report
[2022-01-28] MEDS: IPRATROPIUM BROM 0.5MG/2.5ML NEB SCH ×2 (16:05→20:50)
[2022-01-28] MEDS: CEFTRIAXONE 1,000 MG in NA CHLORIDE 0.9% 50 ML IVPB SCH (17:12)
[2022-01-28] MEDS: ROSUVASTATIN 10 MG TAB PO SCH (20:28)
[2022-01-28] MEDS: QUETIAPINE 25 MG TAB PO SCH (20:28)
[2022-01-29] MEDS: IPRATROPIUM BROM 0.5MG/2.5ML NEB SCH ×4 (01:30→20:40)
[2022-01-29] MEDS: CEFTRIAXONE 1,000 MG in NA CHLORIDE 0.9% 50 ML IVPB SCH (05:03)
--- NOTE | 2022-01-29 05:04 | HP ---
Date of Admission: 01/28/2022 Chief Complaint: Cough, wheezing. History Of Present Illness: This is an 89-year-old male patient with advanced late stage Alzheimer d isease and dementia, who lives at home with family, was doing fine in his normal usual state of healt h until last night. Family member heard some noise coming out of his room, so when they went to [facility] on him, they found him sitting on the commode, feeling very weak and sleepy, and was noted to have wheezing. His oxygen saturation was low around 84% to 85% and systolic blood pressure was around 104 or so. With audible wheezing and hypoxia and shortness of breath problem, he was brought to emergen cy room. After he was evaluated in the ER, he was admitted to the hospital with left-sided pneumonia and acute respiratory failure with hypoxia. Allergies: NO KNOWN ALLERGIES. Medications: Aspirin 81 mg daily, clopidogrel 75 mg daily, donepezil 10 mg 2 times a day, levothyrox ine 50 mcg daily, Claritin 10 mg daily, pyridostigmine 60 mg 2 times a day, Seroquel 25 mg at bedtime , rosuvastatin 20 mg daily at bedtime. He was on metoprolol, which was discontinued about 3 days ago and memantine was also discontinued 3 days ago when he had episode of hypotension with systolic bloo d pressure around 85 or so at that time and with oral hydration, his blood pressure normalized. Review of Systems: CALL CENTER OPERATIONS MANAGER: Has significant impaired cognition to the extent that he is not able to recognize any family me mber and this is his baseline lately. Respiratory: As mentioned above. Constitutional: As mentioned above. Genitourinary: Has urinary incontinence. GI: Has bowel incontinence. All other systems reviewed and negative. Past Medical History: Significant for Alzheimer disease which is late stage and dementia, hypertensi on, hyperlipidemia, coronary artery disease, myasthenia gravis, hypothyroidism, impaired fasting gluc ose, diverticulosis, chronic kidney disease stage IIIA, benign prostatic hypertrophy. Past Surgical History: Coronary artery angioplasty with stent placement in 2015, coronary artery byp ass surgery in 1994. Family History: Brother has Alzheimer disease. Social History: Prior history of smoking, but quit more than 30 years ago. Use of alcohol, rarely e njoys glass of wine. Physical Examination: Vital Signs: Height 64 inches, weight 155 pounds. Temperature 93 degree Fahrenheit when he first ca me into emergency room. Pulse , respiratory rate , blood pressure , ox ygen saturation . General: The patient appears weaker than normal, not in any respiratory distress at rest. HEENT: Head atraumatic, normocephalic. Conjunctivae nonerythematous. Sclerae white. Mouth, no thr ush or edema noted. Ears/Nose, no mass, lesion, discharge noted. Neck: Supple. No JVD, lymph nodes, bruit, thyromegaly noted. Lungs: Presence of wheezing noted in both lung rain with some rales in left lower lung. Heart: Normal heart sounds, no murmur or gallop. Abdomen: Soft, bowel sounds normal. No guarding, rigidity, tenderness, mass, hepatosplenomegaly, dis tention, or bruit noted. Extremities: No leg edema. No calf tenderness. Skin: No rash, ulcer, cellulitis. Lymphatics: No lymph node enlargement in neck, supraclavicular, infraclavicular region. Neuro: No focal neurological deficit. Chest: Unremarkable. External Genitalia: Deferred. Rectal: Deferred. CALL CENTER OPERATIONS MANAGER: Patient is not oriented to time, place, or person. No focal neurological deficits. Laboratory Data: White count 10.2, hemoglobin 13, platelets 209. Sodium 138, potassium 4.2, chlorid e 106, bicarb 22, BUN 24, creatinine 1.95, glucose 161. Liver function tests unremarkable. Troponin 378. TSH normal. Procalcitonin 0.48. Lactic acid 3.6. Chest x-ray, left lower lobe pneumonia. Impression: 1.Pneumonia, community-acquired. 2.Acute respiratory failure with hypoxia. 3.Acute kidney injury. 4.Volume depletion. 5.Anemia, unspecified. 6.Alzheimer disease, late stage. 7.Hypertension. 8.Hyperlipidemia. 9.Coronary artery disease. 10.Senile dementia. 11.Myasthenia gravis. 12.Hypothyroidism. Plan: We will go ahead and admit him to hospital for further evaluation and management of this probl em. The patient is appropriate for inpatient and is expected to spend 2 midnights in the hospital. IV fluid bolus was given in the emergency room and the patient was started on warming blankets as his core temperature was low with hypothermia, temperature of 93 degrees Fahrenheit. Empiric antibiotic s, ceftriaxone, and azithromycin were started and we will continue maintenance IV fluid after initial bolus. Continue home medications per order. DVT prophylaxis will be given using Lovenox. We will go ahead and continue his statin therapy, Seroquel at night time, and give nebulizer treatment per or edi. The patient's code status is do not resuscitate and order was written in the chart. LEONCIO/MODL Voice ID: [id number]
[2022-01-29 05:09] LABS: Absolute Lymphocytes (CBC) 0.7 K/uL (0.7-4.9); Hematocrit 34.6 % (39.6-49.0); Lymphocytes % 4.7 % (15.3-44.8); MCV 90.1 fL (80-100); MPV 8.8 fL (7.6-11.3); RBC Red Blood Cell Count 3.84 M/uL (4.33-5.43)
[2022-01-29 05:14] LABS: Potassium 4.2 mmol/L (3.5-5.1)
[2022-01-29 05:20] LABS: Troponin High Sensitivity 19363.2 pg/mL (<58.9)
[2022-01-29] MEDS: AZITHROMYCIN IV 500 MG in NA CHLORIDE 0.9% 250 ML IVPB SCH (05:42)
[2022-01-29] MEDS: LEVOTHYROXINE SOD 0.05 MG TABLET PO SCH (05:43)
--- NOTE | 2022-01-29 06:26 | EKG ---
Test Date: 2022-01-28 Test Time: 06:41:15 Extractor Puller: ELISE MEASUREMENT RESULTS: Intervals: Rate: 106 RI: 184 QRSD: 74 QT: 390 QTc: 518 [place]: P: 51 RI: 184 QRS: 67 T: 20 INTERPRETIVE STATEMENTS: Sinus tachycardia with premature supraventricular complexes ST & T wave abnormality, consider lateral ischemia Abnormal ECG No previous ECG available for comparison Electronically Signed On 01-29-22 06:24:03 CDT by Shelton Landa
--- NOTE | 2022-01-29 07:15 | RAD REPORT ---
EXAM DESCRIPTION: RAD - Chest Single View - 01/29/2022 5:38 am CLINICAL HISTORY: Chest Pain, abnormal chest film COMPARISON: Portable 01/28/2022 TECHNIQUE: AP portable chest image was obtained 01/29/2022 5:38 am . FINDINGS: Lung volumes are reduced slightly from prior day imaging. This accentuates the baseline in terstitial pattern. There does appear to be any interval increase in diffuse interstitial opacificati on even when adjusting for the lower lung volumes. Left lung field air space opacification is similar or slightly worse. Trachea is in the midline. No new tube or line seen. Heart and vasculature are normal. No measurable pleural effusion and no pneumothorax. No acute bony abnormality seen. No acute aortic findings suspec delio. IMPRESSION: Suspected left lung field pneumonia is similar or slightly worse than prior day imaging. Overall lung field interstitial opacification appears worse even when adjusting for the lower lung vo lume. This suggests a diffuse interstitial edema or infiltrate.
[2022-01-29] MEDS ORDERED: FUROSEMIDE 20 MG/ 2ML VIAL IV ONE ×2 (09:00→21:01)
[2022-01-29] MEDS: CLOPIDOGREL 75 MG TABLET PO SCH (09:31)
[2022-01-29] MEDS: ENOXAPARIN 40 MG/0.4 ML SQ SCH (09:32)
[2022-01-29] MEDS: PIPER TAZO 3.375 GM in NA CHLORIDE 0.9% 100 ML IV SCH ×2 (09:33→17:51)
[2022-01-29] MEDS: ASPIRIN EC 81 MG TAB PO SCH (09:34)
[2022-01-29] MEDS: DONEPEZIL HCL 5 MG TAB PO SCH ×2 (09:36→20:11)
[2022-01-29] MEDS: PYRIDOSTIGMINE 60 MG TABLET PO SCH ×2 (09:36→20:11)
--- NOTE | 2022-01-29 19:16 | RAD REPORT ---
EXAM DESCRIPTION: RAD - Chest Single View - 01/29/2022 7:05 pm CLINICAL HISTORY: pneumonia COMPARISON: Chest Single View dated 01/29/2022; Chest Single View dated 01/28/2022 FINDINGS: Lines: None. Lungs: Multifocal interstitial airspace disease. This is similar to earlier in the day. Pleural: No significant pleural effusions or pneumothorax. Cardiac: Similar size and configuration. Sternotomy. Bones: No acute fractures. Other: IMPRESSION: Multifocal bilateral airspace disease which may represent pneumonia and is similar to th e same-day chest radiograph.
[2022-01-29] MEDS: QUETIAPINE 25 MG TAB PO SCH (20:11)
[2022-01-29] MEDS: ROSUVASTATIN 10 MG TAB PO SCH (20:11)
[2022-01-30] MEDS: PIPER TAZO 3.375 GM in NA CHLORIDE 0.9% 100 ML IV SCH (00:13)
[2022-01-30] MEDS: IPRATROPIUM BROM 0.5MG/2.5ML NEB SCH ×3 (02:07→13:56)
[2022-01-30] MEDS: AZITHROMYCIN IV 500 MG in NA CHLORIDE 0.9% 250 ML IVPB SCH (05:50)
[2022-01-30] MEDS: LEVOTHYROXINE SOD 0.05 MG TABLET PO SCH (05:50)
[2022-01-30 06:21] VITALS: BMI 23.5
--- NOTE | 2022-01-30 07:08 | PN ---
Date of Progress Note: 01/29/2022 Subjective: The patient was seen this morning for followup. He had a restless night, but he did get some sleep after he received Seroquel last night. He has not had any problems urinating. Has had a bowel movement, but he does have incontinence of bladder and bowel. He maintains adequate oxygenati on on room air and blood pressure is on lower side anywhere between 90 to 110 systolic. Physical Examination: HEENT: Unremarkable. Lungs: Bilateral scattered rales present, not using any accessory muscles of respiration at rest. Heart: Sounds normal. Abdomen: Soft. Bowel sounds normal. No guarding, rigidity, tenderness, or distention. Extremities: No leg edema. Laboratory Data: White count 14.9, hemoglobin 11.4, platelets 198. Sodium 140, potassium 4.2, chlor bridget 108, bicarb 26, BUN 24, creatinine 1.43, glucose 128. Troponin 19,363. Procalcitonin 6.4. Lact ic acid 1.7. Chest x-ray, left lower lobe atelectasis present unchanged and also noticing now diffus e increased prominence with interstitial prominent markings in both lung rain. Impression: 1.Pneumonia. 2.Acute respiratory failure with hypoxia. 3.Non-ST segment elevation myocardial infarction. 4.Coronary artery disease. 5.Senile dementia. 6.Acute kidney injury. 7.Alzheimer disease, end-stage. 8.Acute pulmonary edema. 9.Anemia, unspecified. Plan: We will go ahead and continue current azithromycin for pneumonia. We will stop ceftriaxone an d start the patient on Zosyn. He seems to have some trouble swallowing from time to time, which is n oted in form of coughing episodes and 1 has to keep in mind about possibility of aspiration pneumonia and that is why we will aspirin, Plavix, statin therapy. Echo with Doppler was ordered. Consult Physical Therapy. Continue current diet and nutritional supplement using Ensure. During course of day today, he did walk about 50 to 60 feet with Physical Therapy and after that he really got tired and slept off and on throughout the day. He remains completely disoriented and restless a t times. Later on during the course of day today, we did repeat another chest x-ray, which continues to show similar lung findings as earlier this morning and second dose of Lasix 20 mg IV x1 dose was ordered this evening. His blood pressure remains on the lower side, so higher dose of Lasix will not be used. Overall prognosis is poor. I have communicated details with Dr. Cormier and requested him t o take over the patient's care as of tomorrow. LEONCIO/MODL Voice ID: [id number] Report ID: [id number]
--- NOTE | 2022-01-30 07:20 | ECHO ---
HEIGHT: 5 ft 10 in WEIGHT: 163 lb 11.2 oz DATE OF STUDY: 01/29/[address]: Rancho Liz MD 2-DIMENSIONAL: YES M.MODE: YES DOPPLER: YES COLOR FLOW: YES TDS: NO PORTABLE: YES DEFINITY: NO BUBBLE STUDY: NO DIAGNOSIS: NSTEMI CARDIAC HISTORY: CATHERIZATION: SURGERY: PROSTHETIC VALVE: PACEMAKER: MEASUREMENTS (cm) DIASTOLIC (NORMALS) SYSTOLIC (NORMALS) IVSd 0.8 (0.6-1.2) LA Diam 3.4 (1.9-4.0) LVEF 58% LVIDd 4.9 (3.5-5.7) LVIDs 3.4 (2.0-3.5) %FS 31% LVPWd 1.0 (0.6-1.2) Ao Diam 3.0 (2.0-3.7) 2 DIMENSIONAL ASSESSMENT: RIGHT ATRIUM: NORMAL LEFT ATRIUM: NORMAL RIGHT VENTRICLE: NORMAL LEFT VENTRICLE: NORMAL TRICUSPID VALVE: MITRAL VALVE: MITRAL ANNULAR CALCIFICATION PULMONIC VALVE: NORML AORTIC VALVE: PERICARDIAL EFFUSION: NONE AORTIC ROOT: NORMAL LEFT VENTRICULAR WALL MOTION: NORMAL DOPPLER/COLOR FLOW: SEE BELOW. COMMENTS: NORMAL LEFT VENTRICULAR EJECTION FRACTION 55-60% WITH NORMAL WALL MOTION. MILD AORTIC AND TRICUSPID REGURGITATION. AORTIC VALVE CALCIFICATION WITH NO AORTIC STENOSIS. TECHNOLOGIST: Dali MEJIA
[2022-01-30 08:07] LABS: Absolute Lymphocytes (CBC) 0.9 K/uL (0.7-4.9); Hematocrit 38.3 % (39.6-49.0); Lymphocytes % 5.2 % (15.3-44.8); MCV 90.3 fL (80-100); MPV 8.2 fL (7.6-11.3); RBC Red Blood Cell Count 4.25 M/uL (4.33-5.43)
[2022-01-30] MEDS: CLOPIDOGREL 75 MG TABLET PO SCH (08:18)
[2022-01-30] MEDS: ASPIRIN EC 81 MG TAB PO SCH (08:18)
[2022-01-30] MEDS: DONEPEZIL HCL 5 MG TAB PO SCH (08:18)
[2022-01-30] MEDS: PYRIDOSTIGMINE 60 MG TABLET PO SCH (08:19)
[2022-01-30] MEDS: ENOXAPARIN 40 MG/0.4 ML SQ SCH (08:19)
[2022-01-30 08:25] LABS: Magnesium 1.5 mg/dL (1.8-2.4); Potassium 3.5 mmol/L (3.5-5.1)
--- NOTE | 2022-01-30 08:34 | RAD REPORT ---
EXAM DESCRIPTION: RAD - Chest Single View - 01/30/2022 8:24 am CLINICAL HISTORY: pneumonia, pulm edema COMPARISON: Portable January 29, portable January 28 TECHNIQUE: AP portable chest image was obtained 01/30/2022 8:24 am . FINDINGS: Baseline prominent interstitial pattern again noted. The bilateral interstitial and alveol ar opacities detailed on prior examinations have improved. No new or progressive lung parenchymal fin ding. Sternotomy wires again noted. No new tube or line. Heart and vasculature are normal. No measurable pl eural effusion and no pneumothorax. No acute bony abnormality seen. No acute aortic findings suspecte d. IMPRESSION: Significant clearing of the bilateral interstitial and alveolar opacities from prior day imaging. No new, progressive finding.
[2022-01-30] MEDS ORDERED: AMOX/K CLAV 500 MG TAB PO SCH (09:00)
[2022-01-30] MEDS ORDERED: AZITHROMYCIN 250 MG TAB PO SCH ×2 (09:00)
[2022-01-30] MEDS ORDERED: MAGNESIUM OXIDE 400 MG TAB PO ONE (09:58)
[2022-01-30 11:25] VITALS: BP 139/82
[2022-01-30 11:29] VITALS: TEMP 97
[2022-01-30 11:52] VITALS: O2SAT 98
--- NOTE | 2022-01-30 16:47 | P.DS ---
Admission Date: 01/28/22 Discharge Date: 01/30/22 Disposition: HOSPICE-HOME Discharge Condition: SERIOUS - Problems (1) Septic shock Status: Acute (2) Bacterial pneumonia Status: Acute (3) Cardiac ischemia Status: Acute (4) Prerenal azotemia Status: Acute (5) Alzheimer disease Status: Acute Hospital Course: MR. Emily FRENCH IS FATHER OF DR. Jenn FRENCH. HE HAS SEVERE DEMENTIA WITH PARKISONOID FEATURES, DEVELOPED SEVERE WEAKNESS, HYPOTENSION AND COULD NOT GET OFF COMMODE. PATIENT WAS BROUGHT TO THIS HOSPITAL AND WAS FOUND TO HAVE PNEUMONIA, SEPTIC SHOCK, PRRENAL AZOETEMIA, PROCALCITONIN WAS HIGH AND HE FURTHER ADMITTED TO HOSPITAL. DR. FRENCH ASKED ME TO SEE HIM FOR SECOND OPINION ABOUT HIS STATUS AND ADVISE ON DISPOSITION. I HAD A LONG DISCUSSION WITH DR. FRENCH AND HIS BROTHER THE ONLY OFFSPRINGS OF MR. FRENCH. THEY BOTH AGREE AND WANT FATHER COMFORTABLE WITHOUT ANY AGGRESSIVE INTERVENTIONS PER HIS WISH WHEN HE WAS LUCID. HE HAS NOT RESPONDED WELL TO ANTIBIOTICS, HE ALSO HAD CARDIAC ISCHEMIA WITH [place] RELATED TO HYPOTENSION. THEY WANT HIM ON HOSPICE AT HOME AND I AGREE. HE IS SENT HOME WITH HOSPICE COMPANY IN COMFORTABLE CONDITION. MR. Chance FRENCH HAS NO IDEA ABOUT HIS CONIDTION AND HE IS DISORIENTED AT BASELINE. Vital Signs/Physical Exam: Temp Pulse Resp BP Pulse Ox 97 F 92 H 19 139/82 94 01/30/22 08:00 01/30/22 08:00 01/30/22 08:00 01/30/22 08:00 01/29/22 08:00 Laboratory Data at Discharge: WBC 17.30 K/uL (4.3-10.9) H D 01/30/22 07:55 Hgb 12.7 g/dL (13.6-17.9) L 01/30/22 07:55 Hct 38.3 % (39.6-49.0) L 01/30/22 07:55 Plt Count 224 K/uL (152-406) 01/30/22 07:55 PT 11.5 SECONDS (9.5-12.5) 01/28/22 06:00 INR 1.04 01/28/22 06:00 Sodium 136 mmol/L (136-145) 01/30/22 07:55 Potassium 3.5 mmol/L (3.5-5.1) 01/30/22 07:55 BUN 18 mg/dL (7-18) 01/30/22 07:55 Creatinine 1.16 mg/dL (0.55-1.3) 01/30/22 07:55 Glucose 193 mg/dL (74-106) H 01/30/22 07:55 Magnesium 1.5 mg/dL (1.8-2.4) L 01/30/22 07:55 Total Bilirubin 0.3 mg/dL (0.2-1.0) 01/28/22 06:00 AST 19 U/L (15-37) 01/28/22 06:00 ALT 15 U/L (12-78) 01/28/22 06:00 Alkaline Phosphatase 47 U/L (45-117) 01/28/22 06:00 Home Medications: Aspirin [Aspirin EC] 81 mg PO DAILY 01/28/22 Clopidogrel Bisulfate [Plavix] 75 mg PO DAILY 01/28/22 Donepezil HCl 10 mg PO DAILY 01/28/22 Levothyroxine [Synthroid*] 50 mcg PO [id number] 01/28/22 Loratadine [Claritin] 10 mg PO DAILY 01/28/22 Pyridostigmine [place] 60 mg PO QID 01/28/22 Quetiapine Fumarate [Seroquel] 25 mg PO BEDTIME 01/28/22 Rosuvastatin Calcium 20 mg PO DAILY 01/28/22 Followup: Rancho French MD [Primary Care Provider] - Paul Cormier MD [ACTIVE - CAN ADMIT] -
[2022-01-31] MEDS ORDERED: AZITHROMYCIN 250 MG TAB PO SCH (06:00)
--- NOTE | 2022-02-04 08:19 | EKG ---
Test Date: 2022-01-29 Test Time: 16:38:27 Dumpman: JAN MEASUREMENT RESULTS: Intervals: Rate: 81 GA: 188 QRSD: 74 QT: 350 QTc: 406 [place]: P: 34 GA: 188 QRS: 42 T: 226 INTERPRETIVE STATEMENTS: Sinus rhythm with premature supraventricular complexes ST & T wave abnormality, consider lateral ischemia Abnormal ECG Compared to ECG 01/28/2022 06:41:15 Sinus tachycardia no longer present ST (T wave) deviation still present Possible ischemia still present Electronically Signed On 02-04-22 08:12:47 CDT by Shelton Landa
== END 2022-01-30 15:50 | disposition hospice, home (50) | DRG 871 ==
LOC: ER 04:26 → ERHOLD 05:30 → 3RD-ICU 13:05
PROVIDERS: ADMIT Internal Medicine; ATTEND Internal Medicine
DX: A41.9 Sepsis, unspecified organism (principal); R65.21 Severe sepsis with septic shock; J15.9 Unspecified bacterial pneumonia; G30.9 Alzheimer's disease, unspecified; F02.80 Dementia in other diseases classified elsewhere, unspecified severity, without behavioral disturbance, psychotic disturbance, mood disturbance, and anxiety; G20 Parkinson's disease; I25.9 Chronic ischemic heart disease, unspecified; E78.5 Hyperlipidemia, unspecified; I25.2 Old myocardial infarction; R79.89 Other specified abnormal findings of blood chemistry; Z95.1 Presence of aortocoronary bypass graft; Z79.82 Long term (current) use of aspirin; Z79.02 Long term (current) use of antithrombotics/antiplatelets; Z79.890 Hormone replacement therapy; Z79.899 Other long term (current) drug therapy; Z95.5 Presence of coronary angioplasty implant and graft; Z20.822 Contact with and (suspected) exposure to COVID-19; Z51.5 Encounter for palliative care
CPT/HCPCS: 36415; 71045; 80048; 80076; 81003; 83605; 83735; 83880; 84145; 84443; 84484; 85025; 85610; 87040; 87086; 87088; 87804; 87811; 93005; 93306; 94640; 94760; 96361; 96365; 96366; 96375; 97116; 97161; 97530; 99284; J0456; J0696; J1650; J1940; J2543; J3370; J7030; J7040; J7050